=== PATIENT | male | born 1975 | race Caucasian/White ===

== ENCOUNTER 2021-12-17 18:05 | Day surgery (SDC) | payer BC, SELFPAY ==
--- NOTE | ~2021-12-17 | XR_ITS ---
EXAMINATION: XR soft tissue neck DATE: 12/17/2021 18:54 INDICATION: Food bolus obstruction, foreign body. TECHNIQUE: 2 views of the neck soft tissues were obtained. COMPARISON: None. FINDINGS: The adenoids, palatine tonsils, prevertebral soft tissues, epiglottis, and airway are rolando l. IMPRESSION: 1. Normal neck soft tissues. No radiopaque foreign body. Reviewed, dictated and finalized at location E. OR SVP
[2021-12-17 18:08] VITALS: BP 145/96; PULSE 88; RESP 18; TEMP 36.3; O2SAT 100
[2021-12-17] MEDS: GLUCAGON FOR INJ 1 MG VIAL IV PUSH (18:49)
[2021-12-17] MEDS: LACTATED RINGERS 1,000 ML 250 ML IV CONT (18:49)
--- NOTE | 2021-12-17 19:55 | ED.GENADULT ---
HPI - General Adult General Chief complaint: Unspecified Stated complaint: choking Time Seen by Provider: 12/17/21 18:22 Source: patient Mode of arrival: ambulatory Limitations: no limitations History of Present Illness HPI narrative: Patient is a 46-year-old male complaining of food being stuck in his throat after eating roast beef sandwich earlier this afternoon. Patient now states that he is unable to swallow both liquid and solid. Patient states that he has a history of esophageal dilation in the past, last one was years ago . Patient denies any chest pain, shortness of breath, abdominal pain, nausea, vomiting, fever or chills. Related Data Home Medications Medication Instructions Recorded Confirmed No Home Medications 12/17/21 12/17/21 Allergies Allergy/AdvReac Type Severity Reaction Status Date / Time No Known Allergies Allergy Verified 12/17/21 18:15 Review of Systems Review of Systems: All systems reviewed & are unremarkable except as noted in HPI and below Constitutional: Constitutional: Denies body ache(s), Denies chills, Denies excessive sweating, Denies fatigue, Denies fever(s), Denies headache(s), Denies lethargy, Denies malaise, Denies weakness and Denies weight loss Eyes: Eyes: Denies blurry vision, Denies change in vision and Denies loss of vision ENT: Denies dizziness, Denies ear discharge, Denies headache(s), Denies lip swelling, Denies epistaxis, Denies nasal congestion, Denies neck pain, Denies throat swelling and Denies tongue swelling Cardiovascular: Cardiovascular: Denies chest pain, Denies chest pain at rest, Denies chest pain with activity, Denies diaphoresis, Denies rapid heart rate, Denies edema, Denies irregular heart rhythm, Denies lightheadedness, Denies palpitations, Denies dyspnea and Denies dyspnea on exertion Respiratory: Respiratory: Denies chest congestion, Denies cough, Denies hemoptysis, Denies dyspnea and Denies dyspnea on exertion Gastrointestinal: Gastrointestinal: Denies melena, Denies hematochezia, Denies diarrhea, Denies nausea, Denies vomiting and Denies hematemesis Musculoskeletal: Musculoskeletal: Denies abnormal gait, Denies deformity, Denies joint swelling, Denies limited range of motion, Denies neck pain and Denies numbness Neurologic: Denies Abnormal speech present, Denies abnormal gait, Denies confusion, Denies dizziness, Denies headache(s), Denies focal weakness, Denies loss of vision, Denies numbness, Denies Other visual disturbances, Denies Sensory deficit (Neuro) and Denies weakness Psychiatric: Psychiatric: Denies confusion, Denies depression, Denies auditory hallucinations, Denies homicidal ideation and Denies suicidal ideation Endocrine: Endocrine: Denies cold intolerance, Denies excessive sweating, Denies fatigue, Denies heat intolerance and Denies palpitations Hematologic/Lymphatic: Hematologic/Lymphatic: Denies easy bleeding and Denies easy bruising Allergic/Immunologic: Allergic/Immunologic: Denies lip swelling, Denies throat swelling and Denies tongue swelling PMFSH Family History Family History Mother Family history of arthritis Social History Social History Smoking status: Never smoker Alcohol intake: current Comments Past medical history: Esophageal dilation Family history: None Social history: Non-smoker and EtOH or drug use Exam Const: General: cooperative, healthy appearing, comfortable, no acute distress, well developed, alert and awake; No confusion Orientation/consciousness: oriented to person, oriented to place, oriented to time, patient oriented x3 and No confusion Limitations: no limitations HENMT: Head: normal to inspection, normocephalic and atraumatic Ears: hearing grossly normal bilaterally, TM normal on the right and TM normal on the left General nose exam: Normal external nose present, Normal nares present and
--- NOTE | 2021-12-17 19:59 | P.PNAN_ITS ---
Anes - Eval Pre Procedure Procedure: EGD Date/Time: 12/17/21 19:59 Surgeon: antelmo Pre Op Diagnosis: choking Patient Data Age: 46 Gender: M Height: 1.8 m Weight: 97.52 kg Last Vital Signs Temp 36.3 C L 12/17/21 18:08 Pulse 88 12/17/21 18:08 Resp 18 12/17/21 18:08 BP 145/96 H 12/17/21 18:08 Pulse Ox 100 12/17/21 18:08 Allergies Allergy/AdvReac Type Severity Reaction Status Date / Time No Known Allergies Allergy Verified 12/17/21 18:15 Home Medications Medication Instructions Recorded Confirmed Type No Home Medications 12/17/21 12/17/21 History Patient hx anesthesia problems: none Family hx anesthesia problems: none Results Review: All pre-operative results and documents have been reviewed as part of the pre-operative evaluation. [facility] Family History Family History Mother Family history of arthritis Social History Social History Smoking status: Never smoker Alcohol intake: current Exam Day of Procedure 12/17/21 19:59
[2021-12-17 20:07] VITALS: BP 129/99; PULSE 75; RESP 18; O2SAT 99
[2021-12-17 20:24] VITALS: BP 149/103; PULSE 79; RESP 18; TEMP 37.1; O2SAT 100
[2021-12-17] MEDS: LACTATED RINGERS 1,000 ML 150 ML IV CONT (20:30)
--- NOTE | 2021-12-17 20:31 | PM.HPGS ---
History of Present Illness History of Present Illness Consent: Risks, benefits, and alternatives have been discussed and questions answered. Patient agrees to proceed with procedure. Chief complaint: choking Narrative: Jose F Nation is a 46 year old male with remote history of esophageal stricture here with food bolus after eating roast beef sandwich. He uses omeprazole only as needed, sometimes chokes after eating. Review of Systems Constitutional: Constitutional: Denies headache(s) and Denies weakness Eyes: Eyes: Denies blurry vision ENT: Reports Normal hearing present, Denies headache(s) and Denies neck pain Cardiovascular: Cardiovascular: Denies chest pain and Denies dyspnea Respiratory: Respiratory: Denies dyspnea Gastrointestinal: Gastrointestinal: Reports no additional gastrointestinal complaints Genitourinary: Genitourinary: Denies dysuria Musculoskeletal: Musculoskeletal: Denies neck pain Integumentary/Breasts: Skin/Breast: Denies dry skin Neurologic: Reports Normal hearing present, Denies headache(s) and Denies weakness Psychiatric: Psychiatric: Denies anxiety Endocrine: Endocrine: Denies change in body appearance Hematologic/Lymphatic: Hematologic/Lymphatic: Denies easy bleeding Allergic/Immunologic: Allergic/Immunologic: Denies urticaria [facility] Family History Family History Mother Family history of arthritis Social History Social History Smoking status: Never smoker Alcohol intake: current Meds Home Medications and Allergies Home Medications Medication Instructions Recorded Confirmed Type No Home Medications 12/17/21 12/17/21 History Allergies Allergy/AdvReac Type Severity Reaction Status Date / Time No Known Allergies Allergy Verified 12/17/21 20:21 Vital Signs Vital Signs - 24 hr 12/17/21 18:08 12/17/21 20:07 12/17/21 20:24 Temperature 97.4 F L 98.7 F Pulse Rate 88 75 79 Respiratory Rate 18 18 18 Blood Pressure 145/96 H 129/99 H 149/103 H Pulse Oximetry 100 99 100 Exam Const: General: comfortable and no acute distress HENMT: General nose exam: Normal nares present Eyes: General: appearance normal, both eyes and all related structures Neck: Neck: no JVD Resp: Auscultation: clear to auscultation bilaterally Cardio: Rate: regular rate Rhythm: regular rhythm GI: Inspection: non-distended GI Palp: Yes Soft to palpation Skin: General skin exam: normal color Neuro: General: gait normal Speech: normal speech Extrem: General: normal to inspection Psych: Mental Status: mental status grossly normal Assessment and Plan Assessment and plan (1) Distal esophageal obstruction due to foreign body: Code(s): T18.108A - Unspecified foreign body in esophagus causing other injury, initial encounter Status: Acute Assessment and Plan: will proceed with urgent EGD
[2021-12-17] MEDS: BENZOCAINE (*SP) 60 ML SPRAY CAN (HURRICAINE) 1 SPRAY MUCOUS MEM (20:37)
--- NOTE | 2021-12-17 20:43 | WPDANESEFPP ---
Anes - Eval Final PreProcedure Day of Procedure 12/17/21 20:43 Patient weight: overweight Heart: regular rate and rhythm Lungs: clear to auscultation Airway: Mallampati scale class II Neurological: alert and oriented ASA classification: II Emergent: yes Anesthetic plan: proceed Anesthesia type and monitoring: general GIVS and standard monitoring Other findings: exam per GS Results Review: All pre-operative results and documents have been reviewed as part of the pre-operative evaluation. Informed Consent: The patient's anesthetic plan and its attendant risks and benefits were discussed with the patient/family/POA. Questions were solicited and answers provided to the satisfaction of the patient/family/POA.
[2021-12-17 20:48] VITALS: BP 119/86; PULSE 84; RESP 20; O2SAT 99
[2021-12-17 20:58] VITALS: BP 125/85; PULSE 78; RESP 18; O2SAT 98
[2021-12-17 21:08] VITALS: BP 119/85; PULSE 76; RESP 18; O2SAT 99
== END 2021-12-17 21:20 | disposition home or self-care (01) ==
LOC: ANHED 19:59 → ANHENDO 20:21
PROVIDERS: Emergency Provider Emergency Medicine; Visit Provider Internal Medicine Gastroenterology
PROC: 0DJ08ZZ Inspection of Upper Intestinal Tract, Via Natural or Artificial Opening Endoscopic (ICD-10-PCS; CPT 43235; principal; 2021-12-17 08:10)
DX: T18.108A Unspecified foreign body in esophagus causing other injury, initial encounter (principal); K21.00 Gastro-esophageal reflux disease with esophagitis, without bleeding
CPT/HCPCS: 43247; 43239; 70360; 88305; 96374; 99285; J1610; J2704; J7120

== ENCOUNTER 2022-03-14 02:13 | Day surgery (SDC) | payer BC, SELFPAY ==
[2022-03-02 09:11] VITALS: BMI 29.8
[2022-03-14] MEDS: LACTATED RINGERS 1,000 ML 150 ML IV CONT (06:38)
[2022-03-14 06:58] VITALS: BP 132/98; PULSE 68; RESP 16; TEMP 36.2; O2SAT 98
--- NOTE | 2022-03-14 07:19 | PM.HPGS ---
History of Present Illness History of Present Illness Consent: Risks, benefits, and alternatives have been discussed and questions answered. Patient agrees to proceed with procedure. Chief complaint: dysphagia, esophagitis Narrative: Jose F Nation is a 46 year old male with food bolus 12/2021 removed with egd and diagnosed with EoE, now better with ppi daily Review of Systems Constitutional: Constitutional: Denies headache(s) and Denies weakness Eyes: Eyes: Denies blurry vision ENT: Reports Normal hearing present, Denies headache(s) and Denies neck pain Cardiovascular: Cardiovascular: Denies chest pain and Denies dyspnea Respiratory: Respiratory: Denies dyspnea Gastrointestinal: Gastrointestinal: Reports no additional gastrointestinal complaints Genitourinary: Genitourinary: Denies dysuria Musculoskeletal: Musculoskeletal: Denies neck pain Integumentary/Breasts: Skin/Breast: Denies dry skin Neurologic: Reports Normal hearing present, Denies headache(s) and Denies weakness Psychiatric: Psychiatric: Denies anxiety Endocrine: Endocrine: Denies change in body appearance Hematologic/Lymphatic: Hematologic/Lymphatic: Denies easy bleeding Allergic/Immunologic: Allergic/Immunologic: Denies urticaria PMFSH Past Medical History Medical History (Updated 03/14/22 @ 07:19 by Lexx Fowler MD) Eosinophilic esophagitis Family History Family History Mother Family history of arthritis Social History Social History Smoking status: Never smoker Alcohol intake: current Drinks per week: 4 Substance use: never Substance use type: does not use Living arrangements: with family Spiritual care concerns: No Meds Home Medications and Allergies Home Medications Medication Instructions Recorded Confirmed Type omeprazole 40 mg capsule,delayed 40 mg PO DAILY 90 Days #90 cap 03/11/22 03/14/22 Rx release Allergies Allergy/AdvReac Type Severity Reaction Status Date / Time No Known Allergies Allergy Verified 03/14/22 06:26 Vital Signs Vital Signs - 24 hr 03/14/22 06:58 Temperature 97.2 F L Pulse Rate 68 Respiratory Rate 16 Blood Pressure 132/98 H Pulse Oximetry 98 Exam Const: General: comfortable and no acute distress HENMT: General nose exam: Normal nares present Eyes: General: appearance normal, both eyes and all related structures Neck: Neck: no JVD Resp: Auscultation: clear to auscultation bilaterally Cardio: Rate: regular rate Rhythm: regular rhythm GI: Inspection: non-distended GI Palp: Yes Soft to palpation Skin: General skin exam: normal color Neuro: General: gait normal Speech: normal speech Extrem: General: normal to inspection Psych: Mental Status: mental status grossly normal Assessment and Plan Assessment and plan (1) Eosinophilic esophagitis: Code(s): K20.0 - Eosinophilic esophagitis Status: Acute Assessment and Plan: egd to assess healing, already on ppi, dilation as needed
--- NOTE | 2022-03-14 07:21 | WPDANESEPPF ---
Anes - Initial Pre Proc Eval Procedure: Operation Date: 03/14/22 07:30 Proposed Procedures p Esophagogastroduodenoscopy - Lexx Fowler MD Date/Time: 03/14/22 07:21 Surgeon: Lexx Fowler MD Pre Op Diagnosis: dysphagia, esophagitis Patient Data Age: 46 Gender: M Height: 1.8 m Weight: 99.2 kg Last Vital Signs Temp 97.2 F L 03/14/22 06:58 Pulse 68 03/14/22 06:58 Resp 16 03/14/22 06:58 BP 132/98 H 03/14/22 06:58 Pulse Ox 98 03/14/22 06:58 Allergies Allergy/AdvReac Type Severity Reaction Status Date / Time No Known Allergies Allergy Verified 03/14/22 06:26 Home Medications Medication Instructions Recorded Confirmed Type omeprazole 40 mg capsule,delayed 40 mg PO DAILY 90 Days #90 cap 03/11/22 03/14/22 Rx release Patient hx anesthesia problems: none Family hx anesthesia problems: none Results Review: All pre-operative results and documents have been reviewed as part of the pre-operative evaluation. COUNT INCLUDES THE [facility] Past Medical History Medical History (Updated 03/14/22 @ 07:19 by Lexx Fowler MD) Eosinophilic esophagitis Family History Family History Mother Family history of arthritis Social History Social History Smoking status: Never smoker Alcohol intake: current Drinks per week: 4 Substance use: never Substance use type: does not use Living arrangements: with family Spiritual care concerns: No Anes - Eval Final PreProcedure Day of Procedure 03/14/22 07:21 Patient weight: overweight Heart: regular rate and rhythm Lungs: clear to auscultation Airway: Mallampati scale class II Neurological: alert and oriented Last oral intake: >/= 8 hours ASA classification: II Emergent: no Anesthetic plan: proceed Anesthesia type and monitoring: general GIVS and standard monitoring Results Review: All pre-operative results and documents have been reviewed as part of the pre-operative evaluation. Informed Consent: The patient's anesthetic plan and its attendant risks and benefits were discussed with the patient/family/POA. Questions were solicited and answers provided to the satisfaction of the patient/family/POA.
[2022-03-14 07:41] VITALS: BP 114/79; PULSE 73; RESP 23; O2SAT 92
[2022-03-14 07:51] VITALS: BP 124/79; PULSE 72; RESP 21; O2SAT 93
[2022-03-14 08:01] VITALS: BP 110/82; PULSE 73; RESP 19; O2SAT 94
== END 2022-03-14 08:11 | disposition home or self-care (01) ==
PROVIDERS: PCP Physician Assistant; Visit Provider Internal Medicine Gastroenterology
PROC: 0DJ08ZZ Inspection of Upper Intestinal Tract, Via Natural or Artificial Opening Endoscopic (ICD-10-PCS; CPT 43235; principal; 2022-03-14 07:30)
DX: K20.90 Esophagitis, unspecified without bleeding (principal); K22.2 Esophageal obstruction
CPT/HCPCS: 43249; 43239; 88305; C1726; J2001; J2704; J7120

== ENCOUNTER → 2022-03-15 13:09 | Outpatient (REF) | payer BC, SELFPAY | LOC: ANHLAB 13:09 | PROVIDERS: PCP Physician Assistant; Visit Provider Nurse Practitioner | DX: D49.2 Neoplasm of unspecified behavior of bone, soft tissue, and skin (principal) | CPT/HCPCS: 88305 ==

== ENCOUNTER → 2022-05-18 07:14 | Outpatient (REF) | payer SELFPAY | LOC: ANHLAB 07:14 | PROVIDERS: PCP Physician Assistant; Visit Provider Surgery Plastic and Reconstructive Surgery | DX: D23.121 Other benign neoplasm of skin of left upper eyelid, including canthus (principal) | CPT/HCPCS: 88305 ==